=== PATIENT | male | born 1950 | race Caucasian/White ===

== ENCOUNTER → 2018-02-18 | Outpatient (CLI) | payer MEDICARE, BC ==
[~2018-02-18] MED LIST: ACEBUTOLOL; AMLODIPINE BESYL5 MG PO; ASPIR 8181 MG PO; BENICAR PO; CALCIUM + VITA1 EACH PO; CLONIDINE HCL0.1 MG PO; COLESTIPOL HCL1 GM PO; COLESTIPOL PO; FLECAINIDE ACE100 MG PO; FUROSEMIDE PO; FUROSEMIDE40 MG PO; HUMALOG100 UNIT/1 SQ; HYZAAR 100-12.1 EACH PO; INSULIN; LANTUS 3ML100 UNITS/ SQ; LANTUS PO; LORTAB 7.5-5001 EACH PO; LOSARTAN-HCTZ1 EAC2 PO; METFORMIN HCL500 MG PO; MONTELUKAST SOD10 MG PO; NEXIUM; NITROSTAT0.4 MG SL; NOVALOG SC; PANTOPRAZOLE SO40 MG PO; SOTALOL80 MG PO; VITAMIN D32000 UNI1 PO; XELJANZ PO; ZOFRAN ODT4 MG SL; [UNRECOGNIZED DRUG - OTHER] PO; [UNRECOGNIZED DRUG - REMARK]; verapamil PO
--- NOTE | 2018-02-18 11:06 | Diagnostic Imaging Report ---
PROCEDURE:ABDOMINAL ULTRASOUND COMPARISON:CT abdomen and pelvis 11/12/2011. INDICATIONS:ABDOMEN PAIN FINDINGS: Liver: 20.5 cm in length in the right midclavicular line. Diffusely increased hepatic parenchymal echogenicity. No focal mass. Main portal vein: 1 cm in caliber. Hepatopedal flow. Gallbladder: Surgically removed. Common Bile Duct: 0.4 cm. No echogenic filling defect. Right kidney: 12.1 cm in length. No solid or cystic mass, echogenic calculi, or hydronephrosis. Normal renal cortical echogenicity. Left kidney: 13.3 cm in length. No solid or cystic mass, echogenic calculi, or hydronephrosis. Normal renal cortical echogenicity. Spleen: 12.2 cm in length. Uniform echotexture. Pancreas: The visualized portions of the pancreas are normal. Inferior vena cava: Patent Aorta: Non-aneurysmal proximally. Poorly visualized distally.. Ascites: None. CONCLUSION: Hepatomegaly with hepatic steatosis. Status post cholecystectomy. Dictated by: Blanco Ellis M.D. on 02/18/2018 at 11:08 Electronically approved by: Blanco Ellis M.D. on 02/18/2018 at 11:08
== END ==
LOC: US 09:10
PROVIDERS: ATTEND Internal Medicine Gastroenterology
DX: R10.9 Unspecified abdominal pain (principal)
CPT/HCPCS: 76700

== ENCOUNTER 2018-09-13 22:53 | Inpatient (IN) | payer BC, MEDICARE ==
[~2018-09-13] VITALS: Ht 170.2 cm; Wt 145.6 kg
--- OUTSIDE RECORDS SUMMARY | 2018-09-13 22:57 | XMS REPORT ---
Author Author [facility] Address Unknown Phone Unavailable Care Team Providers Care Tree Deadener Name Role Phone JE RANKIN Unavailable Unavailable Problems This patient has no known problems. Allergies, Adverse Reactions, Alerts This patient has no known allergies or adverse reactions. Medications This patient has no known medications. Results Test Description Test Time Test Comments Text Results Atomic Results Result Comments US ABDOMEN COMPLETE [place] [address] Patient Name: JORDAN SEO MR #: [id number] : 1950 Age/Sex: 67/M Req #: [id number] Adm Physician: Ordered by: JE RANKIN MD Report #: [id number] Location: US Room/Bed: Procedure: [id number] US/US ABDOMEN COMPLETE Exam Date: Exam Time: REPORT STATUS: Signed PROCEDURE: ABDOMINAL ULTRASOUND COMPARISON: CT abdomen and pelvis 11/12/2011. INDICATIONS: ABDOMEN PAIN FINDINGS: Liver: 20.5 cm in length in the right midclavicular line. Diffusely increased hepatic parenchymal echogenicity. No focal mass. Main portal vein: 1 cm in caliber. Hepatopedal flow. Gallbladder: Surgically removed. Common Bile Duct: 0.4 cm. No echogenic filling defect. Right kidney: 12.1 cm in length. No solid or cystic mass, echogenic calculi, or hydronephrosis. Normal renal cortical echogenicity. Left kidney: 13.3 cm in length. No solid or cystic mass, echogenic calculi, or hydronephrosis. Normal renal cortical echogenicity. Spleen: 12.2 cm in length. Uniform echotexture. Pancreas: The visualized portions of the pancreas are normal. Inferior vena cava: Patent Aorta: Non-aneurysmal proximally. Poorly visualized distally.. Ascites: None. CONCLUSION: Hepatomegaly with hepatic steatosis. Status post cholecystectomy. Dictated by: Katerine Mobley M.D. on 02/18/2018 at 11:08 Electronically approved by: Katerine Mobley M.D. on 02/18/2018 at 11:08 Dictated By: KATERINE MOBLEY MD [id number] Transcribed By: ZACHARY on 02/18/18 1108 COPY TO: JE RANKIN MD
[2018-09-13] MEDS ORDERED: SODIUM CHLORIDE 0.9% 1000ML 1,000 ML IV STA (23:31)
[2018-09-13] MEDS ORDERED: MORPHINE SULFATE INJ 4 MG/ML INJ IV STA (23:31)
[2018-09-13] MEDS ORDERED: PANTOPRAZOLE 40 MG 10ML VIAL IV STA (23:31)
[2018-09-13] MEDS ORDERED: ONDANSETRON HCL INJ 2 MG/ML VIAL IV STA (23:31)
[2018-09-13 23:52] LABS: BASOPHILS % 0.2 % (0.0-1.0); EOSINOPHILS # (AUTO) 0.1 (0.0-0.4); EOSINOPHILS % 0.4 % (0.0-6.0); HEMOGLOBIN 14.7 g/dL (14.0-18.0); LYMPHOCYTES # (AUTO) 1.6 (1.0-3.2); LYMPHOCYTES % 12.3 % (18.0-39.1); MEAN CORPUSCULAR HEMOGLOBIN 30.1 pg (28-32); MEAN CORPUSCULAR HGB CONC 34.2 g/dL (31-35); MEAN CORPUSCULAR VOLUME 88.1 fL (81-99); MONOCYTES # (AUTO) 1.1 (0.2-0.8); MONOCYTES % 8.1 % (4.4-11.3); NEUTROPHILS # (AUTO) 10.4 (2.1-6.9); NEUTROPHILS % 78.6 % (38.7-80.0); PLATELET COUNT 325 x10e3/uL (140-360); RED BLOOD COUNT 4.88 x10e6/uL (4.3-5.7); RED CELL DISTRIBUTION WIDTH 13.8 % (11.7-14.4)
[2018-09-14] VITALS (7 sets, daily range): BP systolic 136–155; BP diastolic 55–90
[2018-09-14 00:07] LABS: ALANINE AMINOTRANSFERASE 70 IU/L (0-55); ALBUMIN/GLOBULIN RATIO 1.1 (0.8-2.0); ALKALINE PHOSPHATASE 53 IU/L (40-150); ANION GAP 17.4 mmol/L (8-16); BLOOD UREA NITROGEN 15 mg/dL (7-26); BUN/CREATININE RATIO 17 (6-25); CALCIUM 9.4 mg/dL (8.4-10.2); CARBON DIOXIDE 22 mmol/L (22-29); CHLORIDE 101 mmol/L (98-107); EST GLOMERULAR FILTRATION RATE > 60 ML/MIN (60-); GLUCOSE 122 mg/dL (74-118); LIPASE 11 U/L (8-78); POTASSIUM 3.4 mmol/L (3.5-5.1); SODIUM 137 mmol/L (136-145)
[2018-09-14] MEDS ORDERED: DIATRIZOATE MEGL/DIATRIZOA SOD 30 ML BTL PO ONE (00:08)
[2018-09-14] MEDS ORDERED: IOPAMIDOL 370 MG/ML 200 ML INFUS..BTL INJ ONE (01:22)
[2018-09-14] MEDS ORDERED: SODIUM CHLORIDE 0.9% 50ML 50 ML ONE (01:22)
--- NOTE | 2018-09-14 02:39 | Diagnostic Imaging Report ---
EXAM: CT ABDOMEN/PELVIS W DATE: 09/13/2018 11:31 PM INDICATION: Abdominal pain COMPARISON: 02/02/2013 TECHNIQUE: The abdomen and pelvis were scanned using a multidetector helical scanner. Coronal and sagittal reformations were obtained. CT low dose techniques were utilized, as applicable. IV Contrast: 100 ml Isovue 300/370 FINDINGS: LOWER THORAX: Stable partially imaged 1.5 cm right lower lobe nodule, seen dating back to 2011. Calcified left basilar granuloma. Mild bibasilar atelectasis. LIVER/BILIARY: Hepatic steatosis. No ductal dilatation. GALLBLADDER: Surgically absent SPLEEN: Unremarkable PANCREAS: Unremarkable ADRENALS: No nodules KIDNEYS: No suspicious renal masses. Several stable intraparenchymal left renal calcifications No hydronephrosis. GI TRACT: No wall thickening or evidence of obstruction. Mildly dilated distal appendix up to 8 mm with adjacent infiltration of the fat in the right lower quadrant immediately adjacent to the peritoneum on coronal image 56. VESSELS: Mild atherosclerotic changes PERITONEUM/RETROPERITONEUM: No free air or fluid LYMPH NODES: No lymphadenopathy REPRODUCTIVE ORGANS/BLADDER: Unremarkable SOFT TISSUES: Rectus muscle diastases with small to moderate fat-containing periumbilical hernia. Mild inflammatory stranding in the subcutaneous ventral soft tissues. BONES: Unchanged grade 1/2 anterolisthesis of L5 on S1 related to bilateral L5 pars defects. Multilevel degenerative changes. IMPRESSION: 1. Uncomplicated acute tip appendicitis. 2. Small to moderate fat-containing umbilical/periumbilical hernia. Discussed with Physician: GREGORIA SMALLS MD at 2:35 AM on 09/14/2018. Signed by: Dr Nikia Cerna MD on 09/14/2018 2:35 AM
[2018-09-14] MEDS ORDERED: SODIUM CHLORIDE 0.9% 1000ML 1,000 ML IV SCH (02:40)
[2018-09-14] MEDS ORDERED: ONDANSETRON HCL INJ 2 MG/ML VIAL IV PRN ×2 (02:45→17:15)
[2018-09-14] MEDS ORDERED: MORPHINE SULFATE 2 MG/ML SYR IV PRN (02:45)
[2018-09-14 03:03] LABS: CLARITY,URINE CLEAR (CLEAR); COLOR,URINE YELLOW (YELLOW); LEUKOCYTE ESTERASE ,URINE NEGATIVE (NEGATIVE)
[2018-09-14 03:04] LABS: BACTERIA,URINE RARE /HPF; BILIRUBIN,URINE NEGATIVE (NEGATIVE); EPITHELIAL CELLS,URINE RARE /LPF; KETONES,URINE NEGATIVE (NEGATIVE); NITRITE,URINE NEGATIVE (NEGATIVE); PROTEIN,URINE DIPSTICK NEGATIVE (NEGATIVE); RBC,URINE 0-5 /HPF (0-5); URINE UROBILINOGEN 0.2 mg/dL (0.2 - 1); WBC,URINE (MAN) 0-5 /HPF (0-5)
--- NOTE | 2018-09-14 04:00 | NUR ---
Wheeled and Admitted to room 104. Pt A&Ox4. Skin tags to back. Lungs CTA. Abdomen firm, distended, tender to LLQ. Pain 6/10 pain scale. Last BM 09/13, small, soft. 20g right FA, S/L. JAMA martines, up with assistance. Oriented to room. Bed locked. Call harman within reach. Addendum: 09/14/18 at 0558 by Shawna Soto RN abdomen tender to RLQ
[2018-09-14] MEDS ORDERED: CEFTRIAXONE SOD 1 GM/NS 50 ML 50 ML IV ONE (05:05)
[2018-09-14] MEDS: MORPHINE SULFATE INJ 4 MG/ML INJ IV PRN (05:15)
[2018-09-14] MEDS: CEFTRIAXONE SOD 1 GM VIAL IV SCH ×2 (05:15→17:45)
--- NOTE | 2018-09-14 06:45 | NUR ---
Spoke with Dr. Balaji Doherty for consult. Ordered EKG now. Ordered Potassium 20meq/NS 1000ml.
[2018-09-14] MEDS: KCL 20MEQ/.9 SOD CHL 1,000 ML IV SCH ×2 (07:49→15:30)
--- NOTE | 2018-09-14 09:14 | Consultation ---
DATE OF CONSULTATION: PREOPERATIVE STAT CONSULTATION Dwzff[age]awdpq[age]lm[age]-old male. REASON FOR CONSULTATION: Appendicitis. HISTORY: The patient is a morbidly obese male with a BMI of 50, who is a diabetic, who presented with abdominal pain that began in the periumbilical area, upper abdomen, on Friday, associated with nausea. The pain progressively got worse and localized to the right lower quadrant. There was no diarrhea. No fever, no chills. No hematuria. No hematochezia. No similar episodes in the past. Patient had a CT scan in the emergency room that revealed acute appendicitis. PAST MEDICAL HISTORY: Significant for morbid obesity; diabetes, on insulin, on oral hypoglycemic agents. He also has a history of cardiac ablation and arthritis. PAST SURGICAL HISTORY: Laparoscopic cholecystectomy in the past. FAMILY HISTORY: Noncontributory. SOCIAL HISTORY: The patient does not drink or smoke. PHYSICAL EXAMINATION: GENERAL: Reveals morbidly obese male, who is in no acute distress. HEENT: Examination of the head, eyes, ears, nose, and throat reveals no acute process. LUNGS: Clear. HEART: Reveals regular sinus rhythm. ABDOMEN: Examination of the abdomen reveals a well-localized tenderness in the right lower quadrant with mild rebound. IMPRESSION: 1. Acute appendicitis. 2. Morbid obesity. 3. Diabetes. 4. Arthritis. 5. Comorbid conditions. PLAN: To proceed with laparoscopic appendectomy or possible open appendectomy. The patient is aware of the increased risks due to his large size. Thank you. Job#: [id number]
--- NOTE | 2018-09-14 12:11 | NUR ---
patient off unit to OR for appendectomy. in room at bedside and states will await in patient room.
[2018-09-14] MEDS ORDERED: BUPIVACAINE 0.5%/EPI 30 ML SDV INJ ONE (13:13)
[2018-09-14] MEDS ORDERED: KETAMINE HCL INJ 50 MG/ML 10 ML VIAL ONE (14:29)
[2018-09-14] MEDS ORDERED: MIDAZOLAM HCL 2 MG/2 ML VIAL ONE (14:29)
[2018-09-14] MEDS ORDERED: FENTANYL CITRATE/PF 100MCG/2 ML INJ ONE ×2 (14:29→17:06)
[2018-09-14] MEDS ORDERED: ONDANSETRON HCL INJ 2 MG/ML VIAL ONE (14:32)
[2018-09-14] MEDS ORDERED: DESFLURANE 240 ML BTL INH ONE (14:32)
[2018-09-14] MEDS ORDERED: PROPOFOL IV EMULSION 10 MG/ML 20 ML VIAL ONE (14:32)
[2018-09-14] MEDS ORDERED: NEOSTIGMINE 5 MG/5ML SYR ONE (14:32)
[2018-09-14] MEDS ORDERED: GLYCOPYRROLATE INJ 1MG/ 5 ML SYR ONE (14:32)
[2018-09-14] MEDS ORDERED: LIDOCAINE HCL 2% LOCAL INJ 5 ML SDV VIAL INJ ONE (14:32)
[2018-09-14] MEDS ORDERED: KETOROLAC TROMETHAMINE 30 MG/ML VIAL ONE (14:32)
[2018-09-14] MEDS ORDERED: SUCCINYLCHOLINE 200 MG/10 ML SYR ONE (14:32)
[2018-09-14] MEDS ORDERED: DEXAMETHASONE SOD PHOS INJ 4 MG/ML VIAL ONE (14:32)
[2018-09-14] MEDS ORDERED: ROCURONIUM BROMIDE 10 MG/ML 5ML VIAL ONE (14:32)
[2018-09-14] MEDS ORDERED: NEOSTIGMINE 1 MG/ML 10ML VIAL ONE (16:31)
[2018-09-14] MEDS: SODIUM CHLORIDE 0.9% 1000ML 1,000 ML IV SCH (17:15)
[2018-09-14] MEDS ORDERED: HYDROMORPHONE 1MG/1ML INJ IV PRN (17:15)
[2018-09-14] MEDS: PANTOPRAZOLE 40 MG 10ML VIAL IV SCH (17:15)
[2018-09-14] MEDS ORDERED: HYDROMORPHONE 2MG/ML 2 MG/ML ML ONE (17:30)
--- NOTE | 2018-09-14 18:00 | NUR ---
pt returned from OR, drowsy however able to respond to voice. moderate bright red bleeding noted to PRINCE drain site dressing and per OR nurse aware with no new orders. will continue to monitor and notify oncoming nurse. LR infusing to right AC IV. bed in low and locked position, call light placed within reach.
[2018-09-14] MEDS: METRONIDAZOLE 500MG/NS 100ML 100 ML IV SCH (18:10)
[2018-09-14] MEDS: INSULIN REGULAR, HUMAN 100 UNIT/1 ML 3ML VIAL SQ SCH (18:14)
--- NOTE | 2018-09-14 18:24 | NUR ---
sotelo cath in place due to abdominal surgery per will evaluate further need tomorrow. also per MD, patient to begin ambulating in the morning. will notify oncoming nurse.
--- NOTE | 2018-09-14 19:00 | NUR ---
Received patient awake on bed, still drowsy from surgery, family at the bedside. Call light within easy reach, bed in low and locked position, side rails up, with PRINCE drain to the RLQ, dressing moderately soaked, abdominal dressing and binder in place. Dr. Doherty aware of the above events per dayshift. Will continue to monitor
--- NOTE | 2018-09-14 19:06 | Operative Report ---
DATE OF PROCEDURE: September 14, 2018 PREOPERATIVE DIAGNOSES: Acute appendicitis, ventral hernia, morbid obesity with multiple comorbid conditions. POSTOPERATIVE DIAGNOSES: Acute appendicitis, ventral hernia, morbid obesity with multiple comorbid conditions. PROCEDURE PERFORMED: Laparoscopic cholecystectomy and repair of ventral hernia. ANESTHESIA: General endotracheal. ESTIMATED BLOOD LOSS: 200 mL. DRAINS: One 10 mm flat Gerardo-Card drain. COMPLICATIONS: None. INDICATIONS AND FINDINGS: The patient is a morbidly obese 67-year-old pleasant male admitted complaining of abdominal pain for approximately 2 days, the pain did not improve. He came to the emergency room where CT scan showed findings consistent with acute appendicitis, nonperforated. INTRAOPERATIVE FINDINGS: Were acute appendicitis. The procedure was very difficult, not just from a surgical point of view because of his morbid obesity and difficulties in her and then exposing the structures, but also from an anesthetic point of view because of his morbid obesity and his airway pressures intraoperatively were high. The patient had a ventral hernia from a previous laparoscopic cholecystectomy at the umbilical port site and because of this, we placed the 11, 12 trocar through that defect and then we closed it using [address] that we could. The patient understood that the chances were very-very high that he would have recurrence. The intraoperative findings, potential complications such as bleeding, infection, bowel obstruction were all discussed with the patient's and she is pretty much aware of the situation. DESCRIPTION OF PROCEDURE: With the patient lying on the operative table in the supine position after administration of general endotracheal anesthesia, he was prepped and draped for laparoscopic cholecystectomy. The procedure was begun by establishing the pneumoperitoneum in the mid clavicular line right upper quadrant because of his large size and because of the umbilical hernia. After we insufflated the pneumoperitoneum up to 15 mm of pressure and placed a 5 trocar in the right midclavicular line and introduced the camera. The umbilical site was free of any adhesions and then we placed an 11-12 trocar in that location. Then we placed a 5 mm trocar in the right lower quadrant. We also had to place a next trocar using a 10-11 trocar in the upper mid part of the abdomen superior to the umbilical port site and one in the right lower quadrant. Once we established all the ports, we were able to eventually identified the cecum after we placed the patient in the reverse Trendelenburg position and rotated to the left. We were able to initially identify the junction of the appendix with the cecum which was not that enlarged. The appendicitis affected more the distal part of the appendix. At this point we fired the Endo SHAYNA stapler with the blue load twice and then detached the appendix with part of the cecum. We then continued the appendectomy by serially mobilizing the distal part of the appendix, it from the omentum and surrounding tissues including part of the distal small bowel and then the mesoappendix was transected between with the stapler using the white load and electrocautery. After we did that, we placed the appendix in an endobag and removed it through the umbilical hernia. We then re-insufflated the pneumoperitoneum. We took time to irrigate the operative field to ascertain that there was no bleeding. When we were satisfied that there was no bleeding, we went ahead and placed a Surgicel in the mesoappendix. We looked for any evidence of bowel injury and none was found. After we did that, we placed 10 mm flat Gerardo-Card drain through the right lower quadrant trocar and brought it out through that location secured to itself with 2-0 of silk and connected it to self suction. After we did that, the sponge and instrument count were pronounced correct. We released the pneumoperitoneum, removed the trocars. We closed the ventral hernia the best way that we could under the circumstances using interrupted 1 PDS sutures and then 0 catgut for the soft tissues. The skin was closed using interrupted 2-0 silk sutures. The second 11-12 trocar placed superior to the umbilical port site and umbilical hernia was closed using also the same suture material, the same technique. The skin over that port was also closed using 2-0 silk. The remaining port sites which were all 5 mm trocars were closed using artis. A local field block was given with 0.25% Marcaine with epinephrine. The patient tolerated the procedure well. He was taken to the recovery room in stable condition. Job#: [id number] NAYA
--- NOTE | 2018-09-14 21:30 | NUR ---
Patient is awake, no complaints of pain at this time, encouraged deep breathing exercises.
[2018-09-14] MEDS: ACETAMINOPHEN 1000 MG/100 ML IV SCH (23:54)
[2018-09-15] VITALS (7 sets, daily range): BP systolic 140–181; BP diastolic 71–82
[2018-09-15] MEDS: METRONIDAZOLE 500MG/NS 100ML 100 ML IV SCH ×5 (00:24→23:50)
[2018-09-15] MEDS: INSULIN REGULAR, HUMAN 100 UNIT/1 ML 3ML VIAL SQ SCH ×4 (00:48→18:00)
[2018-09-15] MEDS: SODIUM CHLORIDE 0.9% 1000ML 1,000 ML IV SCH ×3 (00:51→17:15)
[2018-09-15] MEDS ORDERED: SODIUM CHLORIDE 0.9% 50ML 50 ML ONE (02:40)
[2018-09-15] MEDS: CEFTRIAXONE SOD 1 GM VIAL IV SCH ×3 (02:45→18:21)
[2018-09-15 05:04] LABS: BASOPHILS % 0.1 % (0.0-1.0); HEMATOCRIT 38.8 % (38.2-49.6); HEMOGLOBIN 13.1 g/dL (14.0-18.0); LYMPHOCYTES # (AUTO) 1.3 (1.0-3.2); LYMPHOCYTES % 13.7 % (18.0-39.1); MEAN CORPUSCULAR HEMOGLOBIN 30.1 pg (28-32); MEAN CORPUSCULAR HGB CONC 33.8 g/dL (31-35); MEAN CORPUSCULAR VOLUME 89.2 fL (81-99); MONOCYTES # (AUTO) 0.9 (0.2-0.8); MONOCYTES % 9.8 % (4.4-11.3); NEUTROPHILS # (AUTO) 7.2 (2.1-6.9); PLATELET COUNT 264 x10e3/uL (140-360); RED BLOOD COUNT 4.35 x10e6/uL (4.3-5.7); RED CELL DISTRIBUTION WIDTH 14.2 % (11.7-14.4)
[2018-09-15] MEDS: MORPHINE SULFATE INJ 4 MG/ML INJ IV PRN ×2 (05:15→09:26)
[2018-09-15 05:21] LABS: BLOOD UREA NITROGEN 14 mg/dL (7-26); BUN/CREATININE RATIO 18 (6-25); CALCIUM 8.2 mg/dL (8.4-10.2); CARBON DIOXIDE 21 mmol/L (22-29); CHLORIDE 104 mmol/L (98-107); EST GLOMERULAR FILTRATION RATE > 60 ML/MIN (60-); GLUCOSE 159 mg/dL (74-118); SODIUM 136 mmol/L (136-145)
[2018-09-15] MEDS: ACETAMINOPHEN 1000 MG/100 ML IV SCH ×5 (05:29→23:32)
--- NOTE | 2018-09-15 06:43 | NUR ---
Spoke to Dr. Emmanuel Hickey, informed about the PRINCE drain site, dressing reinforced as ordered. Continue Rocephin 2gm IV Q24H. Will continue to monitor
--- NOTE | 2018-09-15 06:45 | NUR ---
Patient is passing little gas and burping
--- NOTE | 2018-09-15 07:00 | NUR ---
SHIFT REPORT RECEIVED FROM NIGHT RN. PT DENIES NEEDS AT THIS TIME.
[2018-09-15] MEDS ORDERED: BISACODYL 10 MG SUPP PR ONE (12:30)
[2018-09-15] MEDS ORDERED: NITROGLYCERIN 0.4 MG SUBL SL PRN (13:30)
[2018-09-15] MEDS: COLESTIPOL HCL 1 G TAB PO SCH (16:36)
[2018-09-15] MEDS: FUROSEMIDE 20 MG TAB PO SCH (16:36)
[2018-09-15] MEDS: FLECAINIDE ACETATE 100 MG TAB PO SCH (16:37)
[2018-09-15] MEDS: INSULIN LISPRO 100 UNIT/1 ML 3ML VIAL SQ SCH (16:37)
[2018-09-15] MEDS: XELJANZ 5 MG PO SCH (16:46)
[2018-09-15] MEDS ORDERED: FUROSEMIDE 20 MG PO SCH (17:00)
[2018-09-15] MEDS: PANTOPRAZOLE 40 MG 10ML VIAL IV SCH (17:47)
[2018-09-15] MEDS ORDERED: ONDANSETRON HCL 4 MG ORAL DISINTEGRATING TAB SL PRN (18:00)
[2018-09-15] MEDS ORDERED: CEFTRIAXONE SOD 1 GM/NS 50 ML 100 ML IV ONE (18:20)
--- NOTE | 2018-09-15 18:55 | NUR ---
Received patient awake, sitting on a chair, RLQ PRINCE drain with bloody output, dressing and abdominal binder in place, no complaints at this time. Call light within reached, advised to call for assistance when needed. Assisted back to bed, hooked to SCD BLE. Will continue to monitor accordingly
[2018-09-15] MEDS ORDERED: INSULIN DETEMIR 100 UNIT/ML PEN SQ SCH (21:00)
[2018-09-15] MEDS: INSULIN DETEMIR 100 UNIT/ML PEN SQ SCH (21:53)
--- NOTE | 2018-09-15 22:10 | NUR ---
BP checked 185/87, HR 98, paged Dr. Mary Lou Adhikari answering service, awaiting call back
[2018-09-15] MEDS ORDERED: AMLODIPINE BESYLATE 5 MG TAB PO ONE (22:45)
[2018-09-15] MEDS ORDERED: HYDROCHLOROTHIAZIDE 25 MG TAB PO ONE (22:45)
[2018-09-15] MEDS ORDERED: LOSARTAN POTASSIUM 100 MG TAB PO ONE (22:45)
--- NOTE | 2018-09-15 22:45 | NUR ---
Home Meds for BP given
[2018-09-16] VITALS (7 sets, daily range): BP systolic 143–187; BP diastolic 70–88
[2018-09-16] MEDS: SODIUM CHLORIDE 0.9% 1000ML 1,000 ML IV SCH ×2 (00:24→11:28)
[2018-09-16] MEDS: HYDROMORPHONE 2MG/ML 2 MG/ML ML IV PRN ×2 (00:43→05:00)
[2018-09-16] MEDS: METRONIDAZOLE 500MG/NS 100ML 100 ML IV SCH ×3 (05:00→18:02)
[2018-09-16 05:10] LABS: BASOPHILS % 0.4 % (0.0-1.0); EOSINOPHILS % 0.2 % (0.0-6.0); HEMATOCRIT 37.5 % (38.2-49.6); HEMOGLOBIN 12.5 g/dL (14.0-18.0); LYMPHOCYTES # (AUTO) 1.4 (1.0-3.2); LYMPHOCYTES % 16.8 % (18.0-39.1); MEAN CORPUSCULAR HGB CONC 33.3 g/dL (31-35); MEAN CORPUSCULAR VOLUME 90.1 fL (81-99); MONOCYTES # (AUTO) 0.7 (0.2-0.8); NEUTROPHILS # (AUTO) 5.9 (2.1-6.9); NEUTROPHILS % 73.2 % (38.7-80.0); PLATELET COUNT 235 x10e3/uL (140-360); RED BLOOD COUNT 4.16 x10e6/uL (4.3-5.7)
[2018-09-16 05:29] LABS: ANION GAP 15.1 mmol/L (8-16); BLOOD UREA NITROGEN 9 mg/dL (7-26); BUN/CREATININE RATIO 12 (6-25); CALCIUM 8.5 mg/dL (8.4-10.2); CARBON DIOXIDE 21 mmol/L (22-29); CHLORIDE 103 mmol/L (98-107); CREATININE, SERUM 0.75 mg/dL (0.72-1.25); EST GLOMERULAR FILTRATION RATE > 60 ML/MIN (60-); GLUCOSE 148 mg/dL (74-118); POTASSIUM 3.1 mmol/L (3.5-5.1); SODIUM 136 mmol/L (136-145)
[2018-09-16] MEDS: INSULIN REGULAR, HUMAN 100 UNIT/1 ML 3ML VIAL SQ SCH ×4 (06:00→17:45)
--- NOTE | 2018-09-16 07:00 | NUR ---
pt alert resp even and unlabored at this time, pt easily aroused, to name, pt able to make needs known, pt wearing cpap, call light in reach
[2018-09-16] MEDS: CHOLECALCIFEROL 1,000 UNIT TAB PO SCH (09:00)
[2018-09-16] MEDS: XELJANZ 5 MG PO SCH ×2 (09:00→17:00)
[2018-09-16] MEDS: PANTOPRAZOLE SOD 40 MG TABEC PO SCH (09:00)
[2018-09-16] MEDS: OYST-CAL-D 500MG TABLET PO SCH (09:00)
[2018-09-16] MEDS: MONTELUKAST SODIUM 10 MG TAB PO SCH (09:00)
[2018-09-16] MEDS: HYDROCHLOROTHIAZIDE 25 MG TAB PO SCH (09:00)
[2018-09-16] MEDS: FLECAINIDE ACETATE 100 MG TAB PO SCH ×2 (09:00→18:05)
[2018-09-16] MEDS: COLESTIPOL HCL 1 G TAB PO SCH ×2 (09:00→18:01)
[2018-09-16] MEDS: AMLODIPINE BESYLATE 5 MG TAB PO SCH (09:00)
[2018-09-16] MEDS: FUROSEMIDE 20 MG TAB PO SCH ×2 (09:00→18:01)
[2018-09-16] MEDS: ASPIRIN 81 MG CHEW TAB PO SCH (09:00)
[2018-09-16] MEDS ORDERED: POTASSIUM CHLORIDE 20 MEQ TAB CR PO NR (09:00)
[2018-09-16] MEDS: LOSARTAN POTASSIUM 100 MG TAB PO SCH (09:00)
[2018-09-16] MEDS: METFORMIN HCL 500 MG TAB PO SCH ×2 (09:29→18:01)
[2018-09-16] MEDS: INSULIN LISPRO 100 UNIT/1 ML 3ML VIAL SQ SCH ×3 (09:49→18:06)
[2018-09-16] MEDS: INSULIN DETEMIR 100 UNIT/ML PEN SQ SCH ×2 (09:49→20:34)
--- NOTE | 2018-09-16 10:30 | NUR ---
dr bubba prado removed brigid drain pt tolerated well
--- NOTE | 2018-09-16 10:53 | NUR ---
Product Communications Manager to bedside to discuss plan of care with patient/family. CM/SW role and care transitions discussed. Anticipated discharge plan discussed along with duration of care. CM/SW discussed patients right to make decisions in care. CM/SW work hours given. Patient lives: with Neli and 12 year old son Reilly Admit/Transfer: thru ED, from home POA/Emergency contact: Neli Burden [phone] Current/Previous Home Health: none PCP/Follow-up Care: Dr. Jigar Klein Current/Previous DME: walker, cane, CPAP; has an electric chair but pt states it is broken. Also pt stated that he has a prescription for a rollator but he has not filled it yet. Other Services: none Employment Status: retired Areas of Concerns: weakness, pain, obesity; pt states he has DM and arthritis. states he has tried losing weight thru dieting but doesn't get very far. States he can't exercise due to pain from arthritis flare up. Referral Needs: may benefit from home health for therapy and diabetes monitoring Education Needs: dietary education IMM/ROA given and signed (if applicable): ROA Goal for discharge: home with home health. will provide transportation. CM/SW left business card at the bedside with contact information. Name and number was also written on the patients whiteboard. Patient verbalized understanding of discussion. CM will follow-up with ongoing discharge and transition of care needs.
[2018-09-16] MEDS ORDERED: POTASSIUM CHLORIDE 20 MEQ TAB CR PO ONE ×2 (10:55→17:00)
--- NOTE | 2018-09-16 12:28 | NUR ---
pt up to bathroom with assist.
[2018-09-16 14:40] LABS: BASOPHILS % 0.3 % (0.0-1.0); EOSINOPHILS % 0.2 % (0.0-6.0); HEMOGLOBIN 13.7 g/dL (14.0-18.0); LYMPHOCYTES # (AUTO) 1.3 (1.0-3.2); MEAN CORPUSCULAR HEMOGLOBIN 30.1 pg (28-32); MEAN CORPUSCULAR HGB CONC 33.4 g/dL (31-35); MEAN CORPUSCULAR VOLUME 90.1 fL (81-99); MONOCYTES # (AUTO) 0.7 (0.2-0.8); MONOCYTES % 7.2 % (4.4-11.3); NEUTROPHILS # (AUTO) 7.9 (2.1-6.9); PLATELET COUNT 270 x10e3/uL (140-360); RED BLOOD COUNT 4.55 x10e6/uL (4.3-5.7)
[2018-09-16 14:54] LABS: ANION GAP 16.4 mmol/L (8-16); BLOOD UREA NITROGEN 8 mg/dL (7-26); BUN/CREATININE RATIO 9 (6-25); CALCIUM 9.4 mg/dL (8.4-10.2); CARBON DIOXIDE 22 mmol/L (22-29); CHLORIDE 100 mmol/L (98-107); CREATININE, SERUM 0.86 mg/dL (0.72-1.25); EST GLOMERULAR FILTRATION RATE > 60 ML/MIN (60-); GLUCOSE 195 mg/dL (74-118); POTASSIUM 3.4 mmol/L (3.5-5.1); SODIUM 135 mmol/L (136-145)
[2018-09-16] MEDS: HYDROCODONE/APAP 7.5MG-325MG 1 EA TAB PO PRN (18:51)
--- NOTE | 2018-09-16 19:00 | NUR ---
Patient visited in room during nursing rounds. Patient alert and oriented x4. Patient notably hard of hearing on both ears but easily answers questions and reads lips. S/P Lap Appendectomy on 09/14. Trocar sites and previous PRINCE drain incisions on abdomen and covered with gauze and silk tape. Whole abdomen wrapped with abdominal binder. IVF (NS at [facility]) infusing. Call light within reach. Will monitor closely.
[2018-09-16] MEDS: CEFTRIAXONE SOD 2 GM/NS 100 ML 100 ML IV SCH (19:50)
[2018-09-17] VITALS (7 sets, daily range): BP systolic 133–175; BP diastolic 69–77
[2018-09-17] MEDS: METRONIDAZOLE 500MG/NS 100ML 100 ML IV SCH ×4 (00:09→18:00)
[2018-09-17] MEDS: HYDROCODONE/APAP 7.5MG-325MG 1 EA TAB PO PRN ×3 (01:09→19:30)
[2018-09-17 04:47] LABS: BASOPHILS % 0.5 % (0.0-1.0); EOSINOPHILS # (AUTO) 0.1 (0.0-0.4); EOSINOPHILS % 0.6 % (0.0-6.0); HEMATOCRIT 38.7 % (38.2-49.6); HEMOGLOBIN 12.8 g/dL (14.0-18.0); LYMPHOCYTES # (AUTO) 1.7 (1.0-3.2); LYMPHOCYTES % 19.6 % (18.0-39.1); MEAN CORPUSCULAR HGB CONC 33.1 g/dL (31-35); MEAN CORPUSCULAR VOLUME 90.8 fL (81-99); MONOCYTES # (AUTO) 0.8 (0.2-0.8); MONOCYTES % 9.3 % (4.4-11.3); NEUTROPHILS % 69.5 % (38.7-80.0); PLATELET COUNT 256 x10e3/uL (140-360); RED BLOOD COUNT 4.26 x10e6/uL (4.3-5.7); RED CELL DISTRIBUTION WIDTH 14.1 % (11.7-14.4)
[2018-09-17 05:10] LABS: ANION GAP 16.2 mmol/L (8-16); BLOOD UREA NITROGEN 10 mg/dL (7-26); BUN/CREATININE RATIO 13 (6-25); CALCIUM 8.9 mg/dL (8.4-10.2); CARBON DIOXIDE 24 mmol/L (22-29); CHLORIDE 100 mmol/L (98-107); CREATININE, SERUM 0.77 mg/dL (0.72-1.25); EST GLOMERULAR FILTRATION RATE > 60 ML/MIN (60-); GLUCOSE 95 mg/dL (74-118); POTASSIUM 3.2 mmol/L (3.5-5.1); SODIUM 137 mmol/L (136-145)
[2018-09-17] MEDS ORDERED: SODIUM CHLORIDE 0.9% 250ML 250 ML IV ONE (05:30)
[2018-09-17] MEDS: INSULIN REGULAR, HUMAN 100 UNIT/1 ML 3ML VIAL SQ SCH ×4 (05:53→18:00)
[2018-09-17] MEDS: INSULIN LISPRO 100 UNIT/1 ML 3ML VIAL SQ SCH ×3 (09:00→17:30)
[2018-09-17] MEDS: XELJANZ 5 MG PO SCH ×2 (09:00→16:50)
[2018-09-17] MEDS ORDERED: POTASSIUM CHLORIDE 20 MEQ TAB CR PO NR ×2 (09:00→17:00)
[2018-09-17] MEDS: INSULIN DETEMIR 100 UNIT/ML PEN SQ SCH ×2 (09:30→21:37)
[2018-09-17] MEDS: FLECAINIDE ACETATE 100 MG TAB PO SCH ×2 (10:15→18:00)
[2018-09-17] MEDS: MONTELUKAST SODIUM 10 MG TAB PO SCH (10:15)
[2018-09-17] MEDS: LOSARTAN POTASSIUM 100 MG TAB PO SCH (10:15)
[2018-09-17] MEDS: PANTOPRAZOLE SOD 40 MG TABEC PO SCH (10:15)
[2018-09-17] MEDS: METFORMIN HCL 500 MG TAB PO SCH ×2 (10:15→18:00)
[2018-09-17] MEDS: OYST-CAL-D 500MG TABLET PO SCH (10:15)
[2018-09-17] MEDS: FUROSEMIDE 20 MG TAB PO SCH ×2 (10:15→18:00)
[2018-09-17] MEDS: COLESTIPOL HCL 1 G TAB PO SCH ×2 (10:15→18:00)
[2018-09-17] MEDS: ASPIRIN 81 MG CHEW TAB PO SCH (10:15)
[2018-09-17] MEDS: HYDROCHLOROTHIAZIDE 25 MG TAB PO SCH (10:15)
[2018-09-17] MEDS: AMLODIPINE BESYLATE 5 MG TAB PO SCH (10:15)
[2018-09-17] MEDS: CHOLECALCIFEROL 1,000 UNIT TAB PO SCH (10:15)
[2018-09-17 16:21] LABS: ANION GAP 16.9 mmol/L (8-16); BLOOD UREA NITROGEN 14 mg/dL (7-26); BUN/CREATININE RATIO 13 (6-25); CALCIUM 9.7 mg/dL (8.4-10.2); CARBON DIOXIDE 27 mmol/L (22-29); CHLORIDE 99 mmol/L (98-107); CREATININE, SERUM 1.04 mg/dL (0.72-1.25); EST GLOMERULAR FILTRATION RATE > 60 ML/MIN (60-); GLUCOSE 105 mg/dL (74-118); POTASSIUM 3.9 mmol/L (3.5-5.1); SODIUM 139 mmol/L (136-145)
--- NOTE | 2018-09-17 19:00 | NUR ---
Patient visited during nursing rounds. Patient alert and orientecd x4. Pt c/o aching pain on left shoulder and will be medicated with [place]. Family at bedside visiting. Bed alarm on. Condition stable. Call harman within reach. Will monitor closely.
--- NOTE | 2018-09-17 19:01 | NUR ---
Trocar sites on abd covered with dressing and silk tape appearing clean and dry. Abdomen wrapped with abd binder.
[2018-09-17] MEDS: CEFTRIAXONE SOD 2 GM/NS 100 ML 100 ML IV SCH (19:30)
[2018-09-18] VITALS: BP 191/80
[2018-09-18] MEDS: METRONIDAZOLE 500MG/NS 100ML 100 ML IV SCH ×3 (00:42→12:00)
--- NOTE | 2018-09-18 00:50 | NUR ---
Dr. Olivier Adhikari called over phone to inform patient's BP elevated at 191/80. aware and stated no prn order for hypertension. MD ordered to give x1 dose of Norvasc 5mg PO and changed daily of Norvasc 5mg to BID.
[2018-09-18] MEDS ORDERED: AMLODIPINE BESYLATE 5 MG TAB PO ONE (01:00)
[2018-09-18 02:00] VITALS: BP 161/71
[2018-09-18 04:00] VITALS: BP 179/81
[2018-09-18] MEDS: INSULIN REGULAR, HUMAN 100 UNIT/1 ML 3ML VIAL SQ SCH ×3 (05:31→12:00)
[2018-09-18] MEDS: HYDROCODONE/APAP 7.5MG-325MG 1 EA TAB PO PRN (05:33)
[2018-09-18] MEDS: INSULIN LISPRO 100 UNIT/1 ML 3ML VIAL SQ SCH ×2 (08:00→12:00)
[2018-09-18 08:03] VITALS: BP 156/72
[2018-09-18] MEDS: METFORMIN HCL 500 MG TAB PO SCH (08:17)
[2018-09-18] MEDS: XELJANZ 5 MG PO SCH (09:00)
[2018-09-18] MEDS: CHOLECALCIFEROL 1,000 UNIT TAB PO SCH (09:00)
[2018-09-18] MEDS: ASPIRIN 81 MG CHEW TAB PO SCH (09:00)
[2018-09-18] MEDS: FLECAINIDE ACETATE 100 MG TAB PO SCH (09:00)
[2018-09-18] MEDS: PANTOPRAZOLE SOD 40 MG TABEC PO SCH (09:00)
[2018-09-18] MEDS ORDERED: AMLODIPINE BESYLATE 5 MG TAB PO SCH (09:00)
[2018-09-18] MEDS: INSULIN DETEMIR 100 UNIT/ML PEN SQ SCH (09:00)
[2018-09-18] MEDS: LOSARTAN POTASSIUM 100 MG TAB PO SCH (09:00)
[2018-09-18] MEDS: MONTELUKAST SODIUM 10 MG TAB PO SCH (09:00)
[2018-09-18] MEDS: COLESTIPOL HCL 1 G TAB PO SCH (10:28)
[2018-09-18] MEDS: HYDROCHLOROTHIAZIDE 25 MG TAB PO SCH (10:30)
[2018-09-18] MEDS: FUROSEMIDE 20 MG TAB PO SCH (10:30)
[2018-09-18] MEDS: OYST-CAL-D 500MG TABLET PO SCH (10:33)
[2018-09-18 11:49] VITALS: BP 141/62
--- NOTE | 2018-09-18 13:23 | NUR ---
Spoke with Dr. Adhikari and informed him of PT's recommendation for home health. gave order to set up home health. Stated that he prefers [facility]. CM called and spoke with [facility]'s intake. They do not take pt's insurance. CM spoke with pt regarding home health. He is agreeable as long as his insurance covers it. Agreeable to use any company that takes his insurance. Choice letter signed for [facility]. Signed copy placed in chart. Copy to pt. Referral was faxed to [facility] at [phone] / P [phone] Tanner notified Zully Duran with [facility] of referral. She will have her office run benefits [facility].
--- NOTE | 2018-09-18 14:25 | NUR ---
Per Zully with [facility], they are unable to accept pt. CM spoke with pt and he is fine with them forwarding the referral to a company that will be able to accept.
--- NOTE | 2018-09-18 14:42 | NUR ---
PATIENT DISCHARGED AND OFF UNIT VIA WHEELCHAIR ASSISTED BY HOSPITAL STAFF. VERBAL AND WRITTEN INSTRUCTIONS/PRESCRIPTIONS GIVEN. PATIENT VERBALIZED UNDERSTANDING. EDUCATED PATIENT REGARDING INCREASING NORVASC DOSE FROM ONCE A DAY TO TWICE A DAY PER DR. Mary Lou RANKIN. PATIENT VERBALIZED UNDERSTANDING. IV REMOVED WITH TIP INTACT. PRESSURE DRESSING APPLIED. PATIENT TOLERATED WELL. ALL PERSONAL ITEMS SENT WITH PATIENT.
== END 2018-09-18 14:41 | disposition home or self-care (01) | DRG 339 ==
LOC: ER 22:53 → ERHOLD 09-14 03:16 → MED/SURG2 09-14 04:19 → OBSVTOIN 09-14 17:15
PROC: 0WQF4ZZ Repair Abdominal Wall, Percutaneous Endoscopic Approach (ICD-10-PCS; 2018-09-14)
PROC: 0DTJ4ZZ Resection of Appendix, Percutaneous Endoscopic Approach (ICD-10-PCS; principal; 2018-09-14 15:30)
DX: K35.33 Acute appendicitis with perforation, localized peritonitis, and gangrene, with abscess (principal); Z68.43 Body mass index [BMI] 50.0-59.9, adult; K43.9 Ventral hernia without obstruction or gangrene; E66.01 Morbid (severe) obesity due to excess calories; M19.90 Unspecified osteoarthritis, unspecified site; E11.9 Type 2 diabetes mellitus without complications; Z79.84 Long term (current) use of oral hypoglycemic drugs; Z90.49 Acquired absence of other specified parts of digestive tract
CPT/HCPCS: 36415; 74177; 80048; 80053; 81001; 82948; 83605; 83690; 85025; 88304; 93005; 96361; 97139; 99283; C1766; J0696; J1100; J1885; J2001; J2250; J2270; J2405; J2710; J7030; Q9967

== ENCOUNTER → 2019-07-20 | Day surgery (SDC) | payer BC, MEDICARE ==
[2019-07-16 15:03] LABS: BASOPHILS % 0.2 % (0.0-1.0); EOSINOPHILS % 0.4 % (0.0-6.0); HEMATOCRIT 45.3 % (38.2-49.6); HEMOGLOBIN 14.7 g/dL (14.0-18.0); LYMPHOCYTES # (AUTO) 2.2 (1.0-3.2); LYMPHOCYTES % 23.1 % (18.0-39.1); MEAN CORPUSCULAR HEMOGLOBIN 30.1 pg (28-32); MEAN CORPUSCULAR HGB CONC 32.5 g/dL (31-35); MEAN CORPUSCULAR VOLUME 92.8 fL (81-99); MONOCYTES # (AUTO) 0.7 (0.2-0.8); MONOCYTES % 7.6 % (4.4-11.3); NEUTROPHILS # (AUTO) 6.5 (2.1-6.9); NEUTROPHILS % 68.3 % (38.7-80.0); PLATELET COUNT 253 x10e3/uL (140-360); RED BLOOD COUNT 4.88 x10e6/uL (4.3-5.7); RED CELL DISTRIBUTION WIDTH 13.3 % (11.7-14.4)
[2019-07-16 15:21] LABS: ALANINE AMINOTRANSFERASE 87 IU/L (0-55); ALBUMIN 3.9 g/dL (3.5-5.0); ALBUMIN/GLOBULIN RATIO 1.1 (0.8-2.0); ALKALINE PHOSPHATASE 43 IU/L (40-150); ANION GAP 17.3 mmol/L (8-16); BLOOD UREA NITROGEN 20 mg/dL (7-26); BUN/CREATININE RATIO 20 (6-25); CALCIUM 10.6 mg/dL (8.4-10.2); CARBON DIOXIDE 29 mmol/L (22-29); CHLORIDE 97 mmol/L (98-107); CREATININE, SERUM 1.01 mg/dL (0.72-1.25); EST GLOMERULAR FILTRATION RATE > 60 ML/MIN (60-); GLUCOSE 149 mg/dL (74-118); POTASSIUM 4.3 mmol/L (3.5-5.1); SODIUM 139 mmol/L (136-145)
[~2019-07-20] VITALS: Ht 172.7 cm; Wt 140.6 kg
[2019-07-20] VITALS (8 sets, daily range): BP systolic 119–148; BP diastolic 70–92
[~2019-07-20] MED LIST changes: +ALPRAZOLAM 0.5 MG TAB ONE; +BIVALRIUDIN 250 MG/VIAL VIAL IV ONE; +DIPHENHYDRAMINE HCL 25 MG CAP ONE; +FENTANYL CITRATE/PF 100MCG/2 ML INJ ONE; +FLOMAX0.4 MG PO; +HEPARIN SOD (PORCINE) 1000 UNIT/ML 30ML ONE; +HEPARIN SOD/SOD CHLORIDE 2,000 ML ONE; +IOPAMIDOL 370 MG/ML 200 ML INFUS..BTL INJ ONE; +LANTUS 3ML100 UNITS/ SC; +LIDOCAINE HCL 2% LOCAL 20 ML VIAL ONE; +METOPROLOL PO; +METOPROLOL SUCC25 MG PO; +MIDAZOLAM HCL 2 MG/2 ML VIAL ONE; +NEURONTIN400 MG PO; +NITROGLYCERIN/D5W 200 MCG/ML 250 ML ONE; +NORCO 5-325 TA1 EACH PO; +NOVOLOG100 UNITS1 SC; +OLUMIANT2 MG PO; +RAYOS5 MG PO; +SODIUM CHLORIDE 0.9% 1000ML 1,000 ML ONE; +SODIUM CHLORIDE 0.9% 50ML 0 ML ONE; +VERAPAMIL HCL 2.5 MG/ML 2 ML VIAL ONE
--- NOTE | 2019-07-20 09:35 | NUR ---
Removed 3ml of air from right wrist TR band. Right wrist site appears to be without signs or symptoms of active bleeding at this time. Patient appears to have tolerated well. will monitor.
--- NOTE | 2019-07-20 09:50 | NUR ---
Removed 4ml of air from right wrist TR band. Right wrist site appears to be without signs or symptoms of active bleeding
--- NOTE | 2019-07-20 10:05 | NUR ---
Removed 4ml of air from right wrist TR band. Right wrist site appears to be without signs or symptoms of active bleeding. No distress noted.
--- NOTE | 2019-07-20 10:30 | NUR ---
Removed 2ml of air from right wrist TR band. TR band removed and dressing placed per protocol. Dressing to right wrist is clean,dry, and intact at this time. Reviewed discharge instructions, medication reconciliation, activity restrictions, dressing care, follow up appointment, diet and what signs and symptoms to look for: when to call the doctor and when to call 911. Patient and patient's verbalized understanding and had no questions at this time. Patient to be prepped for discharge.
--- NOTE | 2019-07-20 10:40 | NUR ---
IV to left hand removed. Dressing to left hand clean,dry, and intact. Dressing to right wrist is clean,dry, and intact at this time.
--- NOTE | 2019-07-20 10:45 | NUR ---
Patient void 400ml of urine. 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 Patient discharged with belongings. No distress noted at time of discharge.
--- NOTE | 2019-07-20 14:52 | Operative Report ---
DATE OF PROCEDURE: 07/20/2019 SURGEON: Domenico Mariscal MD INDICATIONS: Coronary artery disease, angina, and abnormal stress test. PROCEDURES PERFORMED: 1. Left heart catheterization, selective coronary angiography. 2. Deployment of right wrist TR band. COMPLICATIONS: None. RECOMMENDATIONS: Medical therapy. DESCRIPTION OF PROCEDURE: Access obtained in the right radial artery. Ultrasound guided 5-Icelandic sheath was placed. Coronary angiography demonstrated mild coronary artery disease, less than 10% luminal stenosis. Excellent flow in all vessels. No critical stenosis or occlusions. No intervention deemed necessary. Right wrist TR band applied. The patient discharged home the same day. Domenico Mariscal MD KSB/MODL /[id number]
== END | disposition home or self-care (01) ==
LOC: CATH LAB 06:28
PROVIDERS: ATTEND Internal Medicine Interventional Cardiology
DX: I25.118 Atherosclerotic heart disease of native coronary artery with other forms of angina pectoris (principal); R94.39 Abnormal result of other cardiovascular function study; I48.0 Paroxysmal atrial fibrillation; I10 Essential (primary) hypertension; M06.9 Rheumatoid arthritis, unspecified; E11.9 Type 2 diabetes mellitus without complications; Z91.048 Other nonmedicinal substance allergy status; Z01.812 Encounter for preprocedural laboratory examination; Z79.82 Long term (current) use of aspirin; Z79.4 Long term (current) use of insulin; Z79.84 Long term (current) use of oral hypoglycemic drugs; Z68.42 Body mass index [BMI] 45.0-49.9, adult; Z83.3 Family history of diabetes mellitus; Z82.49 Family history of ischemic heart disease and other diseases of the circulatory system
CPT/HCPCS: 36415; 76937; 80053; 85025; 93454; C1769; C1887; J1644; J2001; J2250; J3010; J7030; Q9967; 99152; J0583

== ENCOUNTER → 2021-03-19 | Outpatient (CLI) | payer MEDICARE ==
[~2021-03-19] MED LIST changes: -ALPRAZOLAM 0.5 MG TAB ONE; -BIVALRIUDIN 250 MG/VIAL VIAL IV ONE; -DIPHENHYDRAMINE HCL 25 MG CAP ONE; -FENTANYL CITRATE/PF 100MCG/2 ML INJ ONE; -HEPARIN SOD (PORCINE) 1000 UNIT/ML 30ML ONE; -HEPARIN SOD/SOD CHLORIDE 2,000 ML ONE; -LIDOCAINE HCL 2% LOCAL 20 ML VIAL ONE; -MIDAZOLAM HCL 2 MG/2 ML VIAL ONE; -NITROGLYCERIN/D5W 200 MCG/ML 250 ML ONE; -SODIUM CHLORIDE 0.9% 1000ML 1,000 ML ONE; -SODIUM CHLORIDE 0.9% 50ML 0 ML ONE; +SODIUM CHLORIDE 0.9% 50ML 50 ML ONE; -VERAPAMIL HCL 2.5 MG/ML 2 ML VIAL ONE
== END ==
LOC: CT 15:45
PROVIDERS: ATTEND Family Medicine
DX: R10.9 Unspecified abdominal pain (principal)
CPT/HCPCS: 74177; Q9967

== ENCOUNTER → 2021-05-04 | Day surgery (SDC) | payer MEDICARE ==
[2021-05-02 12:24] LABS: BASOPHILS % 0.3 % (0.0-1.0); EOSINOPHILS % 0.2 % (0.0-6.0); HEMATOCRIT 45.1 % (38.2-49.6); HEMOGLOBIN 14.6 g/dL (14.0-18.0); LYMPHOCYTES # (AUTO) 1.5 (1.0-3.2); LYMPHOCYTES % 13.4 % (18.0-39.1); MEAN CORPUSCULAR HEMOGLOBIN 29.4 pg (28-32); MEAN CORPUSCULAR HGB CONC 32.4 g/dL (31-35); MEAN CORPUSCULAR VOLUME 90.7 fL (81-99); MONOCYTES # (AUTO) 0.5 (0.2-0.8); MONOCYTES % 4.4 % (4.4-11.3); NEUTROPHILS % 81.3 % (38.7-80.0); PLATELET COUNT 245 x10e3/uL (140-360); RED BLOOD COUNT 4.97 x10e6/uL (4.3-5.7); RED CELL DISTRIBUTION WIDTH 13.7 % (11.7-14.4)
[~2021-05-04] MED LIST changes: +HYOSCYAMINE SULFATE 0.5 MG/ML INJ ONE; -IOPAMIDOL 370 MG/ML 200 ML INFUS..BTL INJ ONE; +LIDOCAINE HCL 2% LOCAL INJ 5 ML SDV VIAL INJ ONE; +LIPITOR20 MG PO; +PROPOFOL IV EMULSION 10 MG/ML 20 ML VIAL ONE; +REMICADE100 MG/VIA PO; -SODIUM CHLORIDE 0.9% 50ML 50 ML ONE
[2021-05-04 10:45] VITALS: BP 97/60
== END | disposition home or self-care (01) ==
LOC: OR 07:52
PROVIDERS: ATTEND Internal Medicine Gastroenterology
DX: K20.90 Esophagitis, unspecified without bleeding (principal); Z86.010 Personal history of colon polyps; K31.7 Polyp of stomach and duodenum; K29.70 Gastritis, unspecified, without bleeding; K21.9 Gastro-esophageal reflux disease without esophagitis; K64.8 Other hemorrhoids; G47.33 Obstructive sleep apnea (adult) (pediatric); E11.9 Type 2 diabetes mellitus without complications; I10 Essential (primary) hypertension; E66.01 Morbid (severe) obesity due to excess calories; E78.5 Hyperlipidemia, unspecified; Z01.810 Encounter for preprocedural cardiovascular examination; Z01.812 Encounter for preprocedural laboratory examination; Z20.822 Contact with and (suspected) exposure to COVID-19; Z79.4 Long term (current) use of insulin; Z79.82 Long term (current) use of aspirin
CPT/HCPCS: 36415 ×2; 43239; 45378; 82948; 85025; 93005; J1980; J2001; J2704; U0002

== ENCOUNTER 2021-12-18 07:11 | Emergency (ER) | payer MEDICARE ==
[~2021-12-18] VITALS: Ht 172.7 cm; Wt 140.6 kg
[~2021-12-18 07:11] MED LIST changes: -HYOSCYAMINE SULFATE 0.5 MG/ML INJ ONE; -LIDOCAINE HCL 2% LOCAL INJ 5 ML SDV VIAL INJ ONE; -PROPOFOL IV EMULSION 10 MG/ML 20 ML VIAL ONE
[2021-12-18] MEDS ORDERED: PREDNISONE50 MG PO (07:27)
[2021-12-18] MEDS ORDERED: PREDNISONE 20 MG TAB PO ONE (07:30)
[2021-12-18] MEDS ORDERED: BACTRIM DS TAB1 EACH PO (07:40)
[2021-12-18] MEDS ORDERED: DEXAMETHASONE SOD PHOS 10 MG/1 ML VIAL IV ONE (07:45)
[2021-12-18] MEDS ORDERED: BENADRYL25 M1 PO (07:47)
[2021-12-18] MEDS ORDERED: DEXAMETHASONE SOD PHOS 10 MG/1 ML VIAL ONE (07:53)
== END 2021-12-18 07:46 | disposition home or self-care (01) ==
LOC: ER 07:13
DX: R20.2 Paresthesia of skin (principal); L50.9 Urticaria, unspecified; T36.0X5A Adverse effect of penicillins, initial encounter; I10 Essential (primary) hypertension; E11.9 Type 2 diabetes mellitus without complications; I48.91 Unspecified atrial fibrillation; K21.9 Gastro-esophageal reflux disease without esophagitis; M06.9 Rheumatoid arthritis, unspecified
CPT/HCPCS: 94760; 99284; J1100; J7512